=== PATIENT | male | born 1985 | race Caucasian/White ===

== ENCOUNTER 2022-12-25 11:34 | Emergency (ER) | payer MEDICARE ==
--- NOTE | 2022-12-25 12:21 | ERPHSYRPT ---
- History of Present Illness Time Seen by Provider: 12/25/22 12:21 Source: patient, family Exam Limitations: no limitations Physician History: This is a 37-year-old white male patient of Dr. Vargas seizure disorder and recently changed from immediate release Dilantin to an extended release Dilantin medication with a lower strength. Since that change was made, the patient had a couple of seizures last night and 5 this morning. He has not hit his head. He states that he thinks his Dilantin level is low and the immediate release Dilantin medication works best for him. Patient denies headache. Patient denies chest pain, patient denies abdominal pain. He said no nausea vomiting or diarrhea. He has not had any loss of bowel or urine continence. Timing/Duration: yesterday Severity: mild (To moderate) Character of Deficits: none Baseline/Normal Cognition: alert 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 Current Cognition: alert 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 Baseline Gait: walks w/o assistance Associated Symptoms: seizures Travel Risk - International Travel Have you traveled outside of the country in past 3 weeks: No - Coronavirus Screening Are you exhibiting any of the following symptoms?: No Close contact with a COVID-19 positive Pt in past 14-21 Days: No - Review of Systems Constitutional: No Symptoms Eyes: No Symptoms Ears, Nose, & Throat: No Symptoms Respiratory: No Symptoms Cardiac: No Symptoms Abdominal/Gastrointestinal: No Symptoms Genitourinary Symptoms: No Symptoms Musculoskeletal: No Symptoms Skin: No Symptoms Neurological: Seizure Psychological: No Symptoms Endocrine: No Symptoms Hematologic/Lymphatic: No Symptoms Immunological/Allergic: No Symptoms All Other Systems: Reviewed and Negative - Past Medical History Pertinent Past Medical History: Yes - Past Surgical History Past Surgical History: Yes - Nursing Vital Signs Nursing Vital Signs: Initial Vital Signs Temperature 97.3 F 12/25/22 12:09 Pulse Rate 61 12/25/22 12:09 Blood Pressure 111/87 12/25/22 12:09 O2 Sat by Pulse Oximetry 98 12/25/22 12:09 Pain Scale Pain Intensity 0 - [place] Coma Scale Best Eye Response ([place]): (4) open spontaneously Best Verbal Response ([place]): (5) oriented Best Motor Response ([place]): (6) obeys commands [place] Total: 15 - Physical Exam General Appearance: no apparent distress, alert, anxiety Eye Exam: bilateral eye: normal inspection, PERRL, EOMI Ears, Nose, Throat Exam: normal ENT inspection, moist mucous membranes Neck Exam: normal inspection, non-tender, supple, full range of motion Respiratory: normal breath sounds, lungs clear, airway intact, No chest tenderness, No respiratory distress Cardiovascular: regular rate/rhythm, normal heart sounds, normal peripheral pulses Gastrointestinal: soft, normal bowel sounds, No tenderness Rectal Exam: not done Back Exam: normal inspection, normal range of motion, No CVA tenderness, No vertebral tenderness Extremity Exam: normal inspection, normal range of motion, pelvis stable 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, 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, 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 Exam: normal hearing, normal speech, PERRL, tongue midline Coordination/Gait: normal finger to nose, normal gait, normal cerebellar function Motor/Sensory: no motor deficit, no sensory deficit Skin Exam: normal color, warm, dry SpO2 Interpretation: normal O2 Delivery: Room Air - Course Nursing assessment & vital signs reviewed: Yes Ordered Tests: Active Orders 24 hr Category Date Time Status Hand Brush Filler STAT Care 12/25/22 12:39 Active IV Insertion STAT Care 12/25/22 12:38 Active Pulse Oximetry (ED) STAT Care 12/25/22 12:38 Active CBC W DIFF Stat Lab 12/25/22 12:30 Completed CMP Stat Lab 12/25/22 12:30 Completed UA W/RFX UR CULTURE Stat Lab 12/25/22 12:38 Ordered Urine Triage Profile Stat Lab 12/25/22 12:38 Ordered Medication Summary Discontinued Medications Generic Name Dose Route Start Last Admin Trade Name Freq PRN Reason Stop Dose Admin Phenytoin Sodium 1,000 mg/ 120 mls @ 240 mls/hr 12/25/22 13:24 12/25/22 13:43 Sodium Chloride IV 12/25/22 13:53 240 mls/hr STAT ONE Administration Sodium Chloride Confirm 12/25/22 13:56 Sodium Chloride 0.9% 1000 Ml Administered 12/25/22 13:57 Dose 1,000 mls @ ud .ROUTE .STK-MED ONE Sodium Chloride 1,000 mls @ 999 mls/hr 12/25/22 14:02 12/25/22 15:16 Sodium Chloride 0.9% 1000 Ml IV 12/25/22 15:02 Infused .Q1H1M STA Infusion Lorazepam 0.5 mg 12/25/22 12:48 12/25/22 13:24 Lorazepam 2 Mg/1 Ml 2 Mg Vial IV 12/25/22 12:49 0.5 mg STAT ONE Administration Lorazepam Confirm 12/25/22 13:22 Lorazepam 2 Mg/1 Ml 2 Mg Vial Administered 12/25/22 13:23 Dose 2 mg .ROUTE .STK-MED ONE Lab/Rad Data: Laboratory Result Diagrams 12/25/22 12:30 12/25/22 12:30 Laboratory Results 12/25/22 12/25/22 12/25/22 Range/Units 12:30 12:30 12:30 WBC 6.7 (4.0-10.5) x10^3/uL RBC 4.65 (4.1-5.6) x10^6/uL Hgb 14.3 (12.5-18.0) g/dL Hct 43.1 (42-50) % MCV 92.7 (78-100) fL MCH 30.8 (26-32) pg MCHC 33.2 (32-36) g/dL RDW 12.8 (11.5-14.0) % Plt Count 192 (150-450) x10^3/uL MPV 10.5 (7.5-11.0) fL Gran % 51.8 (36.0-66.0) % Immature Gran % (Auto) 0.1 (0.00-0.4) % Nucleat RBC Rel Count 0.0 (0.00-0.1) % Eos # (Auto) 0.19 (0-0.5) x10^3/uL Immature Gran # (Auto) 0.01 (0.00-0.03) x10^3u/L Absolute Lymphs (auto) 2.40 (1.0-4.6) x10^3/uL Absolute Monos (auto) 0.59 (0.0-1.3) x10^3/uL Absolute Nucleated RBC 0.00 (0.00-0.01) x10^3u/L Lymphocytes % 35.9 (24.0-44.0) % Monocytes % 8.8 (0.0-12.0) % Eosinophils % 2.8 (0.00-5.0) % Basophils % 0.6 (0.0-0.4) % Absolute Granulocytes 3.45 (1.4-6.9) x10^3/uL Basophils # 0.04 (0-0.4) x10^3/uL Sodium 140 (137-145) mmol/L Potassium 4.0 (3.5-5.1) mmol/L Chloride 110 H (98-107) mmol/L Carbon Dioxide 20 L (22-30) mmol/L Anion Gap 13.3 (5-15) MEQ/L BUN 11 (9-20) mg/dL Creatinine 0.97 (0.66-1.25) mg/dL Estimated GFR > 60.0 ML/MIN Glucose 111 H (74-106) mg/dL Calcium 8.8 (8.4-10.2) mg/dL Total Bilirubin 0.40 (0.2-1.3) mg/dL AST 25 (17-59) U/L ALT 25 (0-50) U/L Alkaline Phosphatase 104 (38-126) U/L Serum Total Protein 7.1 (6.3-8.2) g/dL Albumin 3.8 (3.5-5.0) g/dL Phenytoin < 3.0 L (10-20) ug/mL - Progress Progress: improved Progress Note: 12/25/22 15:22 Patient's medical issue is 1 of moderate complexity. The level of complexity and the work-up performed is based on review of the patient's past medical history, review of the patient's medication list, review of the patient's drug allergy list, history of present illness and physical findings on examination. The work-up in this patient includes Dilantin level, CBC, CMP, infusion of 1 L of normal saline solution. I reviewed the work-up results and it is apparent that this patient had breakthrough seizure secondary to low Dilantin level. We infused 1000 mg of Dilantin intravenously. Patient will contact his prescribing provider tomorrow, 12/26/2022 to have them reassess his medication and provide further instructions. Counseled pt/family regarding: lab results, diagnosis, need for follow-up Medical Desision Making - Independent Historian Additional History obtained from: Spouse - Diagnostic Testing Diagnostic test were ordered, analyzed, and reviewed by me: Yes - Risk of complications Minimal Risk: Minimal risk of morbidity - Departure Departure Disposition: Home Clinical Impression: Breakthrough seizure, Dilantin level too low Condition: Stable Critical Care Time: No Referrals: WOODY VARGAS [Primary Care Provider] - Follow up/PCP as directed Additional Instructions: Call your prescribing provider tomorrow to discuss your Dilantin medication antonio thrasher.
[2022-12-25 12:24] VITALS: O2SAT 98
[2022-12-25] MEDS ORDERED: Ativan 2 MG/1 ML VIAL IV ONE (12:48)
[2022-12-25 12:55] LABS: Absolute Neutrophil Ct (ANC) 3.45 x10^3/uL (1.4-6.9); BASOPHIL % 0.6 % (0.0-0.4); Basophil (Absolute #) 0.04 x10^3/uL (0-0.4); Eosinophil % 2.8 % (0.00-5.0); Eosinophil (Absolute #) 0.19 x10^3/uL (0-0.5); Hematocrit 43.1 % (42-50); Hemoglobin 14.3 g/dL (12.5-18.0); IMMATURE GRAN # 0.01 x10^3u/L (0.00-0.03); IMMATURE GRAN % 0.1 % (0.00-0.4); Lymphocytes % 35.9 % (24.0-44.0); Mean Cell Volume 92.7 fL (78-100); Mean Corpuscular Hemoglobin 30.8 pg (26-32); Mean Corpuscular Hgb Concent. 33.2 g/dL (32-36); Mean Platelet Volume 10.5 fL (7.5-11.0); Monocyte (Absolute #) 0.59 x10^3/uL (0.0-1.3); Monocytes % 8.8 % (0.0-12.0); Neutrophil % 51.8 % (36.0-66.0); Platelet Count 192 x10^3/uL (150-450); Red Blood Count 4.65 x10^6/uL (4.1-5.6); Red Cell Distribution Width 12.8 % (11.5-14.0); White Blood Count 6.7 x10^3/uL (4.0-10.5)
[2022-12-25 13:08] LABS: ALBUMIN 3.8 g/dL (3.5-5.0); ALKALINE PHOSPHATASE 104 U/L (38-126); ANION GAP 13.3 MEQ/L (5-15); BLOOD UREA NITROGEN 11 mg/dL (9-20); CHLORIDE 110 mmol/L (98-107); Calcium 8.8 mg/dL (8.4-10.2); Carbon Dioxide 20 mmol/L (22-30); Creatinine 1 0.97 mg/dL (0.66-1.25); EST GLOMERULAR FILTRATION RATE > 60.0 ML/MIN; Glucose 111 mg/dL (74-106); SGOT/AST 25 U/L (17-59); SGPT/ALT 25 U/L (0-50); SODIUM 140 mmol/L (137-145); Total Protein 7.1 g/dL (6.3-8.2)
[2022-12-25] MEDS ORDERED: Ativan 2 MG/1 ML VIAL ONE (13:22)
[2022-12-25] MEDS ORDERED: DILANTIN IV ONE (13:24)
[2022-12-25] MEDS ORDERED: SODIUM CHLORIDE 0.9% IV ONE (13:24)
[2022-12-25] MEDS ORDERED: Sodium Chloride 0.9% 1000 ML 1,000 ML ONE (13:56)
[2022-12-25] MEDS ORDERED: Sodium Chloride 0.9% 1000 ML 1,000 ML IV STA (14:02)
[2022-12-25 15:13] VITALS: BP 103/68; PULSE 88
== END 2022-12-25 16:06 | disposition home or self-care (01) ==
LOC: ED 11:34
DX: G40.909 Epilepsy, unspecified, not intractable, without status epilepticus (principal); T42.0X6A Underdosing of hydantoin derivatives, initial encounter
CPT/HCPCS: 36000; 36415; 80053; 80185; 85025; 93041; 94760; 96360; 96374; 99284; J1165; J2060

== ENCOUNTER 2024-05-13 10:31 | Emergency (ER) | payer MEDICARE ==
--- NOTE | 2024-05-13 10:34 | ERPHSYRPT ---
- History of Present Illness Time Seen by Provider: 05/13/24 10:34 Source: patient, family Exam Limitations: no limitations Physician History: This is a 38-year-old white male patient who has a history of seizure disorder and depression and is taking Dilantin to help control his seizures and presents to the emergency department by private vehicle because of headache and his head feeling "foggy". Patient woke up this morning could hear his significant other calling him to get up but he could not move. He stated he feels somewhat paralyzed. He now can move all his extremities but his fogginess has persisted. He denies trauma to the area. Patient states that he has been taking his Dilantin as prescribed except not this morning because of this episode. He has never had this type of thing before. I did review his old chart which did state in the past has had breakthrough seizures. Patient is a daily smoker of tobacco cigarettes and occasionally uses marijuana. The patient denies chest pain and he denies shortness of breath. He has no abdominal pain. He has no nausea vomiting or diarrhea symptoms. Timing/Duration: today Quality: aching Head Pain Location: parietal Severity of Pain-Max: mild Severity of Pain-Current: mild (Left side primarily) Recent Head Trauma: no recent headache/trauma Modifying Factors: Improves With: other Associated Symptoms: denies symptoms Previous symptoms: no prior history Allergies/Adverse Reactions: Iodinated Contrast Media Allergy (Verified 05/13/24 11:24) Penicillins Allergy (Verified 05/13/24 11:24) Home Medications: Unobtainable 05/13/24 [History] Hx Tetanus, Diphtheria Vaccination/Date Given: No Hx Influenza Vaccination/Date Given: No Hx Pneumococcal Vaccination/Date Given: No Travel Risk - International Travel Have you traveled outside of the country in past 3 weeks: No - Emerging Infectious Disease Are you exhibiting symptoms associated with any current EIDs: No - Review of Systems Constitutional: No Symptoms Eyes: No Symptoms Ears, Nose, & Throat: No Symptoms Respiratory: No Symptoms Cardiac: No Symptoms Abdominal/Gastrointestinal: No Symptoms Genitourinary Symptoms: No Symptoms Musculoskeletal: No Symptoms Skin: No Symptoms Neurological: Headache Psychological: No Symptoms Endocrine: No Symptoms Hematologic/Lymphatic: No Symptoms Immunological/Allergic: No Symptoms All Other Systems: Reviewed and Negative - Past Medical History Pertinent Past Medical History: Yes Neurological History: Seizures ENT History: No Pertinent History Cardiac History: No Pertinent History Respiratory History: No Pertinent History Endocrine Medical History: No Pertinent History Musculoskeletal History: No Pertinent History GI Medical History: No Pertinent History History: No Pertinent History Psycho-Social History: Depression Male Reproductive Disorders: No Pertinent History - Past Surgical History Past Surgical History: Yes Other Surgical History: ear surgery, lap choley, bilateral inguinal hernia repair - Social History Smoking Status: Current every day smoker How long have you smoked: 19 yrs Drug Use: marijuana Patient Lives Alone: No - Nursing Vital Signs Nursing Vital Signs: Initial Vital Signs Temperature 972 F 05/13/24 11:21 Pulse Rate 80 05/13/24 11:21 Respiratory Rate 18 05/13/24 11:21 Blood Pressure 121/73 05/13/24 11:21 O2 Sat by Pulse Oximetry 98 05/13/24 11:21 Pain Scale Pain Intensity 0 - Physical Exam General Appearance: no apparent distress, alert, anxiety Eye Exam: PERRL/EOMI, eyes nml inspection Ears, Nose, Throat Exam: normal ENT inspection, moist mucous membranes Neck Exam: normal inspection, non-tender, supple, full range of motion Respiratory Exam: normal breath sounds, lungs clear, airway intact, No chest tenderness, No respiratory distress Cardiovascular Exam: regular rate/rhythm, normal heart sounds, normal peripheral pulses Gastrointestinal/Abdominal Exam: soft, normal bowel sounds, No tenderness Back Exam: normal inspection, normal range of motion, No CVA tenderness, No vertebral tenderness Extremity Exam: normal inspection, normal range of motion, pelvis stable Mental Status Exam: alert, 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, 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 Exam: normal hearing, normal speech, PERRL, tongue midline Coordination/Gait Exam: normal gait, normal cerebellar function Motor/Sensory Exam: no motor deficit, no sensory deficit, no pronator drift Skin Exam: normal color, warm, dry Lymphatic Exam: No adenopathy SpO2 Interpretation: normal O2 Delivery: Room Air - Course Nursing assessment & vital signs reviewed: Yes Ordered Tests: Active Orders 24 hr Category Date Time Status Transportation Specialist STAT Care 05/13/24 11:29 Active Clean Catch Urine Specimen STAT Care 05/13/24 11:28 Active IV Insertion STAT Care 05/13/24 11:28 Active Pulse Oximetry (ED) STAT Care 05/13/24 11:28 Active HEAD WITHOUT CONTRAST [CT] Stat Exams 05/13/24 11:28 Completed CBC W DIFF Stat Lab 05/13/24 12:00 Completed CMP Stat Lab 05/13/24 12:00 Completed UA W/RFX UR CULTURE Stat Lab 05/13/24 11:51 Completed Urine Triage Profile Stat Lab 05/13/24 11:51 Completed Medication Summary Discontinued Medications Generic Name Dose Route Start Last Admin Trade Name Maren PRN Reason Stop Dose Admin Sodium Chloride 500 mls @ 500 mls/hr 05/13/24 11:30 05/13/24 12:48 Sodium Chloride 0.9% 500 Ml IV 05/13/24 12:29 Infused .Q1H ONE Infusion Sodium Chloride Confirm 05/13/24 11:47 Sodium Chloride 0.9% 500 Ml Administered 05/13/24 11:48 Dose 500 mls @ ud IV .STK-MED ONE Lab/Rad Data: Laboratory Result Diagrams 05/13/24 12:00 05/13/24 12:00 Laboratory Results 05/13/24 05/13/24 05/13/24 Range/Units 12:18 12:00 12:00 WBC (4.23-9.07) x10^3/uL RBC (4.63-6.08) x10^6/uL Hgb (13.7-17.5) g/dL Hct (40.1-51.0) % MCV (79.0-92.2) fL MCH (25.7-32.2) pg MCHC (32.3-36.5) g/dL RDW (11.6-14.4) % Plt Count (163-337) x10^3/uL MPV (9.4-12.4) fL Gran % (34.0-67.9) % Immature Gran % (Auto) (0.001-0.429) % Nucleat RBC Rel Count (0.00-0.2) % Eos # (Auto) (0.04-0.54) x10^3/uL Immature Gran # (Auto) (0.001-0.031) x10^3u/L Absolute Lymphs (auto) (1.32-3.57) x10^3/uL Absolute Monos (auto) (0.30-0.82) x10^3/uL Absolute Nucleated RBC (0.00-0.012) x10^3u/L Lymphocytes % (21.8-53.1) % Monocytes % (5.3-12.2) % Eosinophils % (0.8-7.0) % Basophils % (0.2-1.2) % Absolute Granulocytes (1.78-5.38) x10^3/uL Basophils # (0.01-0.08) x10^3/uL Sodium 140 (135-145) mmol/L Potassium 4.1 (3.5-5.1) mmol/L Chloride 110 H (98-107) mmol/L Carbon Dioxide 22 (22-30) mmol/L Anion Gap 12.4 (5-15) MEQ/L BUN 11 (9-20) mg/dL Creatinine 0.91 (0.66-1.25) mg/dL Estimated GFR 112.0 ML/MIN Glucose 106 (74-106) mg/dL Calcium 9.1 (8.4-10.2) mg/dL Total Bilirubin 0.40 (0.2-1.3) mg/dL AST 33 (17-59) U/L ALT 23 (0-50) U/L Alkaline Phosphatase 92 (38-126) U/L Serum Total Protein 7.0 (6.3-8.2) g/dL Albumin 4.0 (3.5-5.0) g/dL Urine Color (Yellow) Urine Appearance (Clear) Urine pH (4.6-8.0) Ur Specific [place] (1.005-1.030) Urine Protein (Negative) Urine Glucose (UA) (Negative) mg/dL Urine Ketones (Negative) Urine Blood (Negative) Urine Nitrite (Negative) Urine Bilirubin (Negative) Urine Urobilinogen (0.2) mg/dL Ur Leukocyte Esterase (Negative) U Hyaline Cast (Auto) (0-2) /LPF Urine Microscopic RBC (0-5) /HPF Urine Microscopic WBC (0-5) /HPF Ur Epithelial Cells (None Seen) /HPF Urine Bacteria (None Seen) /HPF Urine Culture Reflexed (NO) Urine Opiates Level (NEGATIVE) Ur Methadone (NEGATIVE) Urine Barbiturates (NEGATIVE) Phenytoin < 3.0 L (10-20) ug/mL Ur Phencyclidine (PCP) (NEGATIVE) Urine Amphetamine (NEGATIVE) U Benzodiazepine Level (NEGATIVE) Urine Cocaine (NEGATIVE) Urine Marijuana (THC) (NEGATIVE) Influenza Type A Ag NEGATIVE (NEGATIVE) Influenza Type B Ag NEGATIVE (NEGATIVE) RSV (PCR) NEGATIVE (NEGATIVE) SARS-CoV-2 (PCR) NEGATIVE (NEGATIVE) 05/13/24 05/13/24 05/13/24 Range/Units 12:00 11:51 11:51 WBC 6.6 (4.23-9.07) x10^3/uL RBC 4.44 L (4.63-6.08) x10^6/uL Hgb 13.7 (13.7-17.5) g/dL Hct 40.7 (40.1-51.0) % MCV 91.7 (79.0-92.2) fL MCH 30.9 (25.7-32.2) pg MCHC 33.7 (32.3-36.5) g/dL RDW 13.1 (11.6-14.4) % Plt Count 182 (163-337) x10^3/uL MPV 11.5 (9.4-12.4) fL Gran % 57.4 (34.0-67.9) % Immature Gran % (Auto) 0.2 (0.001-0.429) % Nucleat RBC Rel Count 0.0 (0.00-0.2) % Eos # (Auto) 0.10 (0.04-0.54) x10^3/uL Immature Gran # (Auto) 0.01 (0.001-0.031) x10^3u/L Absolute Lymphs (auto) 2.10 (1.32-3.57) x10^3/uL Absolute Monos (auto) 0.57 (0.30-0.82) x10^3/uL Absolute Nucleated RBC 0.00 (0.00-0.012) x10^3u/L Lymphocytes % 31.9 (21.8-53.1) % Monocytes % 8.7 (5.3-12.2) % Eosinophils % 1.5 (0.8-7.0) % Basophils % 0.3 (0.2-1.2) % Absolute Granulocytes 3.78 (1.78-5.38) x10^3/uL Basophils # 0.02 (0.01-0.08) x10^3/uL Sodium (135-145) mmol/L Potassium (3.5-5.1) mmol/L Chloride (98-107) mmol/L Carbon Dioxide (22-30) mmol/L Anion Gap (5-15) MEQ/L BUN (9-20) mg/dL Creatinine (0.66-1.25) mg/dL Estimated GFR ML/MIN Glucose (74-106) mg/dL Calcium (8.4-10.2) mg/dL Total Bilirubin (0.2-1.3) mg/dL AST (17-59) U/L ALT (0-50) U/L Alkaline Phosphatase (38-126) U/L Serum Total Protein (6.3-8.2) g/dL Albumin (3.5-5.0) g/dL Urine Color Yellow (Yellow) Urine Appearance Clear (Clear) Urine pH 7.0 (4.6-8.0) Ur Specific [place] 1.020 (1.005-1.030) Urine Protein Negative (Negative) Urine Glucose (UA) Negative (Negative) mg/dL Urine Ketones Negative (Negative) Urine Blood Negative (Negative) Urine Nitrite Negative (Negative) Urine Bilirubin Negative (Negative) Urine Urobilinogen 0.2 (0.2) mg/dL Ur Leukocyte Esterase Trace A (Negative) U Hyaline Cast (Auto) NONE SEEN (0-2) /LPF Urine Microscopic RBC 0-2 (0-5) /HPF Urine Microscopic WBC 0-2 (0-5) /HPF Ur Epithelial Cells None Seen (None Seen) /HPF Urine Bacteria None Seen (None Seen) /HPF Urine Culture Reflexed NO (NO) Urine Opiates Level NEGATIVE (NEGATIVE) Ur Methadone NEGATIVE (NEGATIVE) Urine Barbiturates NEGATIVE (NEGATIVE) Phenytoin (10-20) ug/mL Ur Phencyclidine (PCP) NEGATIVE (NEGATIVE) Urine Amphetamine NEGATIVE (NEGATIVE) U Benzodiazepine Level NEGATIVE (NEGATIVE) Urine Cocaine NEGATIVE (NEGATIVE) Urine Marijuana (THC) POSITIVE A (NEGATIVE) Influenza Type A Ag (NEGATIVE) Influenza Type B Ag (NEGATIVE) RSV (PCR) (NEGATIVE) SARS-CoV-2 (PCR) (NEGATIVE) - Progress Progress: improved Air Movement: good Progress Note: 05/13/24 11:41 My medical decision making the assignment of moderate complexity to this patient's medical issue today is based on review of the patient's past medical history, review the patient's medication list, reviewed patient drug allergy list, history present illness and physical findings on examination. The workup includes a smell of intravenous line, infusion of normal saline solution, CBC, CMP, urinalysis, urine drug triage, CT scan of the head, viral swabs, Dilantin level. The differential diagnosis includes but is not limited to abnormal Dilantin level, acute intracranial abnormality, electrolyte abnormalities, dehydration, urinary tract infection 05/13/24 13:08 CT scan of the head without contrast was interpreted by the radiologist and I reviewed the impression. The impression states normal CT scan of the head without contrast. 05/13/24 13:20 I interpreted the lab results. No acute/emergent medical issues. Blood Culture(s) Obtained: No Antibiotics given: No Counseled pt/family regarding: lab results, diagnosis, need for follow-up, rad results Medical Desision Making - Diagnostic Testing Diagnostic test were ordered, analyzed, and reviewed by me: Yes Radiological Interpretation: Reviewed by me, Teleradiologist Report - Risk of complications Low Risk: Low risk of morbidity from additional dx testing or treatment - Departure Departure Disposition: Home Clinical Impression: Headache, Phenytoin level low Condition: Stable Critical Care Time: No Referrals: ABDON JUAREZ FNP [Primary Care Provider] - Follow up/PCP as directed Additional Instructions: drink plenty of fluids. take your medications as prescribed. call the provider today, 05/13/24, who prescribes your Dilantin to adjust if indicated.
[2024-05-13 11:22] VITALS: TEMP 972
[2024-05-13] MEDS ORDERED: Sodium Chloride 0.9% 500 ML 500 ML IV ONE (11:47)
[2024-05-13] MEDS: Sodium Chloride 0.9% 500 ML 500 ML IV ONE (11:48)
[2024-05-13 12:16] LABS: Absolute Neutrophil Ct (ANC) 3.78 x10^3/uL (1.78-5.38); BASOPHIL % 0.3 % (0.2-1.2); Basophil (Absolute #) 0.02 x10^3/uL (0.01-0.08); Eosinophil % 1.5 % (0.8-7.0); Hematocrit 40.7 % (40.1-51.0); Hemoglobin 13.7 g/dL (13.7-17.5); IMMATURE GRAN # 0.01 x10^3u/L (0.001-0.031); IMMATURE GRAN % 0.2 % (0.001-0.429); Lymphocytes % 31.9 % (21.8-53.1); Mean Cell Volume 91.7 fL (79.0-92.2); Mean Corpuscular Hemoglobin 30.9 pg (25.7-32.2); Mean Corpuscular Hgb Concent. 33.7 g/dL (32.3-36.5); Mean Platelet Volume 11.5 fL (9.4-12.4); Monocyte (Absolute #) 0.57 x10^3/uL (0.30-0.82); Monocytes % 8.7 % (5.3-12.2); Neutrophil % 57.4 % (34.0-67.9); Platelet Count 182 x10^3/uL (163-337); Red Blood Count 4.44 x10^6/uL (4.63-6.08); Red Cell Distribution Width 13.1 % (11.6-14.4); White Blood Count 6.6 x10^3/uL (4.23-9.07)
[2024-05-13 12:30] LABS: Appearance Clear (Clear); Bacteria None Seen /HPF (None Seen); Bilirubin Negative (Negative); Blood Negative (Negative); Epithelial Cells None Seen /HPF (None Seen); Glucose, Urine Negative (Negative); Hyaline Casts NONE SEEN /LPF (0-2); Ketones Negative (Negative); Leukocyte Esterase Trace (Negative); Nitrite Negative (Negative); Protein,Urine Dip Negative (Negative); RBC 0-2 /HPF (0-5); Urobilinogen 0.2 mg/dL (0.2); WBC 0-2 /HPF (0-5)
[2024-05-13 12:39] LABS: Amphetamine,Urine NEGATIVE (NEGATIVE); Barbiturate,Urine NEGATIVE (NEGATIVE); Benzodiazepine,Urine NEGATIVE (NEGATIVE); Cocaine,Urine NEGATIVE (NEGATIVE); Methadone,Urine NEGATIVE (NEGATIVE); Opiate,Urine NEGATIVE (NEGATIVE); PCP,Urine NEGATIVE (NEGATIVE); THC,Urine POSITIVE (NEGATIVE)
[2024-05-13 12:42] LABS: ANION GAP 12.4 MEQ/L (5-15); BILIRUBIN,TOTAL 0.4 mg/dL (0.2-1.3); Calcium 9.1 mg/dL (8.4-10.2); Creatinine 1 0.91 mg/dL (0.66-1.25); Potassium 4.1 mmol/L (3.5-5.1)
--- NOTE | 2024-05-13 12:46 | XRAY ---
Indication: Headache. No known injury. Multiple contiguous axial images obtained through the head without contrast. Comparison: None Normal appearing brain parenchyma, ventricles, and bony calvarium. Visualized paranasal sinuses and mastoid air cells are clear. Impression: Normal CT head without contrast exam.
[2024-05-13 12:59] LABS: INFLUENZA A NEGATIVE (NEGATIVE); INFLUENZA B NEGATIVE (NEGATIVE); RESPIRATORY SYNCTIAL VIRUS NEGATIVE (NEGATIVE); SARS-CoV-2 Xpert Express NEGATIVE (NEGATIVE)
[2024-05-13 13:43] VITALS: BP 128/86; PULSE 76; RESP 16; O2SAT 97
== END 2024-05-13 13:50 | disposition home or self-care (01) ==
LOC: ED 10:31
DX: R51.9 Headache, unspecified (principal); T42.0X6A Underdosing of hydantoin derivatives, initial encounter; G40.909 Epilepsy, unspecified, not intractable, without status epilepticus
CPT/HCPCS: 0241U; 36000; 36415; 70450; 80053; 80185; 80307; 81001; 85025; 93041; 94760; 99284

== ENCOUNTER 2024-07-30 19:40 | Emergency (ER) | payer MEDICARE ==
[2024-07-30] MEDS ORDERED: Ativan 2 MG/1 ML VIAL ONE (19:49)
[2024-07-30] MEDS: Ativan 2 MG/1 ML VIAL IV ONE (19:53)
[2024-07-30 20:05] LABS: Absolute Neutrophil Ct (ANC) 8.16 x10^3/uL (1.78-5.38); BASOPHIL % 0.3 % (0.2-1.2); Basophil (Absolute #) 0.03 x10^3/uL (0.01-0.08); Eosinophil % 0.3 % (0.8-7.0); Eosinophil (Absolute #) 0.03 x10^3/uL (0.04-0.54); Hematocrit 41.8 % (40.1-51.0); Hemoglobin 14.5 g/dL (13.7-17.5); IMMATURE GRAN # 0.04 x10^3u/L (0.001-0.031); IMMATURE GRAN % 0.4 % (0.001-0.429); Lymphocyte (Absolute #) 1.99 x10^3/uL (1.32-3.57); Lymphocytes % 18.4 % (21.8-53.1); Mean Corpuscular Hemoglobin 30.5 pg (25.7-32.2); Mean Corpuscular Hgb Concent. 34.7 g/dL (32.3-36.5); Mean Platelet Volume 10.2 fL (9.4-12.4); Monocyte (Absolute #) 0.55 x10^3/uL (0.30-0.82); Monocytes % 5.1 % (5.3-12.2); Neutrophil % 75.5 % (34.0-67.9); Platelet Count 200 x10^3/uL (163-337); Red Blood Count 4.75 x10^6/uL (4.63-6.08); Red Cell Distribution Width 12.8 % (11.6-14.4); White Blood Count 10.8 x10^3/uL (4.23-9.07)
[2024-07-30 20:25] LABS: ALBUMIN 4.5 g/dL (3.5-5.0); ALKALINE PHOSPHATASE 96 U/L (38-126); ANION GAP 18.2 MEQ/L (5-15); BLOOD UREA NITROGEN 9 mg/dL (9-20); CHLORIDE 112 mmol/L (98-107); Calcium 9.5 mg/dL (8.4-10.2); Creatinine 1 1.14 mg/dL (0.66-1.25); EST GLOMERULAR FILTRATION RATE 85.5 ML/MIN; ETHYL ALCOHOL < 10 mg/dL (0-10); Glucose 121 mg/dL (74-106); MAGNESIUM 2.1 mg/dL (1.6-2.3); Potassium 3.5 mmol/L (3.5-5.1); SGOT/AST 26 U/L (17-59); SGPT/ALT 27 U/L (0-50); SODIUM 142 mmol/L (135-145); Total Protein 7.4 g/dL (6.3-8.2)
--- NOTE | 2024-07-30 20:43 | ERPHSYRPT ---
- History of Present Illness Time Seen by Provider: 07/30/24 19:55 Patient Subjective Stated Complaint: Pt. states, "I just left [place] this morning after sending the night for increased seizure activity. They increased my Dilantin and sent me home. I starting seizing today and had severe pain in my neck and head so I called the ambulance. I did fall and hit my head during one of the seizures. Triage Nursing Assessment: Pt. arrives via EMS, A&Ox3, skin P/W/D, Resp even unlabored, weakness in all four extremities, d/t post ictal paralysis, SR on monitor. During triage assessment pt. began actively seizing, entire body involved lasting approx. 15 seconds. Physician History: Patient is a 38-year-old male presents to our ED via EMS for evaluation of seizure. Per report patient had 4 episodes of seizure activity today. [place] [facility] spending the night there for evaluation and treatment of seizure activity. Patient reports that while in the hospital his Dilantin was increased prior to discharge. Upon arrival to our ED patient was somewhat conversant but drowsy. No associated chest pain or shortness of breath. No nausea vomiting or diaphoresis. Patient voices no other complaints or concerns at this time. Portions of this note were created with voice recognition technology. There may be grammatical, spelling, punctuation or sound alike errors Timing/Duration: today Severity: moderate Modifying Factors: Improves With: nothing Associated Symptoms: denies symptoms Allergies/Adverse Reactions: Iodinated Contrast Media Allergy (Verified 05/13/24 11:24) Penicillins Allergy (Verified 05/13/24 11:24) Home Medications: Phenytoin 30 ml PO BID 07/31/24 [History] Propranolol HCl 20 mg PO DAILY 07/31/24 [History] Topiramate 25 mg [Topamax 25 MG] 1 cap PO BID 07/31/24 [History] Hx Tetanus, Diphtheria Vaccination/Date Given: No Hx Influenza Vaccination/Date Given: No Hx Pneumococcal Vaccination/Date Given: No Immunizations Up to Date: No Travel Risk - International Travel Have you traveled outside of the country in past 3 weeks: No - Emerging Infectious Disease Are you exhibiting symptoms associated with any current EIDs: No - Review of Systems Constitutional: No Symptoms, No Fever, No Chills Eyes: No Symptoms Ears, Nose, & Throat: No Symptoms Respiratory: No Symptoms, No Cough, No Dyspnea Cardiac: No Symptoms, No Chest Pain, No Edema, No Syncope Abdominal/Gastrointestinal: No Symptoms, No Abdominal Pain, No Nausea, No Vomiting, No Diarrhea Genitourinary Symptoms: No Symptoms, No Dysuria Musculoskeletal: No Symptoms, No Back Pain, No Neck Pain Skin: No Symptoms, No Rash Neurological: No Symptoms, No Dizziness, No Focal Weakness, No Sensory Changes Psychological: No Symptoms Endocrine: No Symptoms Hematologic/Lymphatic: No Symptoms Immunological/Allergic: No Symptoms All Other Systems: Reviewed and Negative - Past Medical History Pertinent Past Medical History: Yes Neurological History: Seizures ENT History: No Pertinent History Cardiac History: No Pertinent History Respiratory History: No Pertinent History Endocrine Medical History: No Pertinent History Musculoskeletal History: No Pertinent History GI Medical History: No Pertinent History History: No Pertinent History Psycho-Social History: Depression Male Reproductive Disorders: No Pertinent History - Past Surgical History Past Surgical History: Yes Other Surgical History: ear surgery, lap choley, bilateral inguinal hernia repair - Social History Smoking Status: Current every day smoker How long have you smoked: 20 Exposure to second hand smoke: Yes Drug Use: none Patient Lives Alone: No - Social Determinants of Health Will the patient participate in the screening: Declined to provide - Nursing Vital Signs Nursing Vital Signs: Initial Vital Signs Temperature 97.3 F 07/30/24 19:44 Pulse Rate 65 07/30/24 19:44 Respiratory Rate 18 07/30/24 19:44 Blood Pressure 130/83 07/30/24 19:44 O2 Sat by Pulse Oximetry 98 07/30/24 19:44 Pain Scale Pain Intensity 0 - Physical Exam General Appearance: no apparent distress, alert Eye Exam: PERRL/EOMI, eyes nml inspection Ears, Nose, Throat Exam: normal ENT inspection, TMs normal, pharynx normal, moist mucous membranes Neck Exam: normal inspection, non-tender, supple, full range of motion Respiratory Exam: normal breath sounds, lungs clear, No respiratory distress Cardiovascular Exam: regular rate/rhythm, normal heart sounds, normal peripheral pulses Gastrointestinal/Abdomen Exam: soft, normal bowel sounds, No tenderness, No mass Back Exam: normal inspection, normal range of motion, No CVA tenderness, No vertebral tenderness Extremity Exam: normal inspection, normal range of motion, pelvis stable Neurologic Exam: alert, 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, cooperative, normal mood/affect, nml cerebellar function, nml station & gait, sensation nml, No motor deficits Skin Exam: normal color, warm, dry, No rash Lymphatic Exam: No adenopathy SpO2 Interpretation: normal SpO2: 98 O2 Delivery: Room Air - Course Nursing assessment & vital signs reviewed: Yes EKG Interpreted by Me: RATE (77), Sinus Rhythm, NORMAL AXIS, NORMAL INTERVALS, NORMAL QRS - Radiology Exams Chest X-ray Interpretation: Discussed w/ radiologist (No acute abnormality observed) - CT Exams Head CT Interpretation: Tele-radiologist Report (Age-appropriate head compared to 05/13/2024) Ordered Tests: Active Orders 24 hr Category Date Time Status AMA [Release AMA] OM.NOW Care 07/31/24 07:25 Active Power Sweeper Operator STAT Care 07/30/24 19:50 Active EKG-ER Only STAT Care 07/30/24 19:49 Active IV Insertion STAT Care 07/30/24 19:49 Active Pulse Oximetry (ED) STAT Care 07/30/24 19:49 Active CHEST 1 VIEW (PORTABLE) Stat Exams 07/30/24 19:50 Taken HEAD WITHOUT CONTRAST [CT] Stat Exams 07/30/24 19:51 Taken ACETAMINOPHEN Stat Lab 07/30/24 20:00 Completed ARTERIAL BLOOD GASES Urgent Lab 07/30/24 21:25 Completed CBC W DIFF Stat Lab 07/30/24 20:00 Completed CMP Stat Lab 07/30/24 20:00 Completed ETHYL ALCOHOL Stat Lab 07/30/24 20:00 Completed Lactic Acid Stat Lab 07/30/24 21:25 Completed MAGNESIUM Stat Lab 07/30/24 20:00 Completed SALICYLATE Stat Lab 07/30/24 20:00 Completed TROPONIN Q4H Lab 07/30/24 20:00 Completed TROPONIN Q4H Lab 07/31/24 01:12 Completed TROPONIN Q4H Lab 07/31/24 05:00 Completed UA W/RFX UR CULTURE Stat Lab 07/30/24 20:50 Completed Urine Triage Profile Stat Lab 07/30/24 20:50 Completed Medication Summary Generic Name Dose Route Start Last Admin Trade Name Freq PRN Reason Stop Dose Admin Topiramate 25 mg 07/31/24 10:00 Topiramate 50 Mg Tablet PO 08/30/24 09:59 DAILY MATILDA Discontinued Medications Generic Name Dose Route Start Last Admin Trade Name Freq PRN Reason Stop Dose Admin Lorazepam 2 mg 07/30/24 19:49 07/30/24 19:53 Lorazepam 2 Mg/1 Ml 2 Mg Vial IV 07/30/24 19:50 2 mg STAT ONE Administration Lorazepam Confirm 07/30/24 19:49 Lorazepam 2 Mg/1 Ml 2 Mg Vial Administered 07/30/24 19:50 Dose 2 mg .ROUTE .uromovie-Card[employer] ONE Prochlorperazine Edisylate 10 mg 07/30/24 21:02 07/30/24 21:03 Prochlorperazine Edisylate 10 Mg/2 Ml Vial IV 07/30/24 21:03 10 mg STAT ONE Administration Prochlorperazine Edisylate Confirm 07/30/24 21:03 Prochlorperazine Edisylate 10 Mg/2 Ml Vial Administered 07/30/24 21:04 Dose 10 mg .ROUTE .[employer] ONE Lab/Rad Data: Laboratory Result Diagrams 07/30/24 20:00 07/30/24 20:00 Laboratory Results 07/31/24 07/31/24 07/30/24 Range/Units 05:00 01:12 Unknown WBC (4.23-9.07) x10^3/uL RBC (4.63-6.08) x10^6/uL Hgb (13.7-17.5) g/dL Hct (40.1-51.0) % MCV (79.0-92.2) fL MCH (25.7-32.2) pg MCHC (32.3-36.5) g/dL RDW (11.6-14.4) % Plt Count (163-337) x10^3/uL MPV (9.4-12.4) fL Gran % (34.0-67.9) % Immature Gran % (Auto) (0.001-0.429) % Nucleat RBC Rel Count (0.00-0.2) % Eos # (Auto) (0.04-0.54) x10^3/uL Immature Gran # (Auto) (0.001-0.031) x10^3u/L Absolute Lymphs (auto) (1.32-3.57) x10^3/uL Absolute Monos (auto) (0.30-0.82) x10^3/uL Absolute Nucleated RBC (0.00-0.012) x10^3u/L Lymphocytes % (21.8-53.1) % Monocytes % (5.3-12.2) % Eosinophils % (0.8-7.0) % Basophils % (0.2-1.2) % Absolute Granulocytes (1.78-5.38) x10^3/uL Basophils # (0.01-0.08) x10^3/uL Puncture Site pCO2 (35-45) mmHg pO2 (75-100) mmHg Base Excess (-2.0-2.0) O2 Saturation (94-100) g/dF ABG pH (7.35-7.45) ABG HCO3 (22-28) ABG O2 Sat (Measured) (95-100) % Arturo Test A-a Gradient a/A Ratio Hemoglobin Carboxyhemoglobin (0.0-6.9) % THgb Methemoglobin (1.4-1.5) % Temperature C POC O2 Flow Rate % Sodium (135-145) mmol/L Potassium (3.5-5.1) mmol/L Chloride (98-107) mmol/L Carbon Dioxide (22-30) mmol/L Anion Gap (5-15) MEQ/L BUN (9-20) mg/dL Creatinine (0.66-1.25) mg/dL Estimated GFR ML/MIN Glucose (74-106) mg/dL Lactic Acid (0.4-2.0) Calcium (8.4-10.2) mg/dL Magnesium (1.6-2.3) mg/dL Total Bilirubin (0.2-1.3) mg/dL AST (17-59) U/L ALT (0-50) U/L Alkaline Phosphatase (38-126) U/L Troponin I < 0.012 < 0.012 (0.000-0.033) ng/mL Serum Total Protein (6.3-8.2) g/dL Albumin (3.5-5.0) g/dL Urine Color (Yellow) Urine Appearance (Clear) Urine pH (4.6-8.0) Ur Specific [place] (1.005-1.030) Urine Protein (Negative) Urine Glucose (UA) (Negative) mg/dL Urine Ketones (Negative) Urine Blood (Negative) Urine Nitrite (Negative) Urine Bilirubin (Negative) Urine Urobilinogen (0.2) mg/dL Ur Leukocyte Esterase (Negative) U Hyaline Cast (Auto) (0-2) /LPF Urine Microscopic RBC (0-5) /HPF Urine Microscopic WBC (0-5) /HPF Ur Epithelial Cells (None Seen) /HPF Urine Bacteria (None Seen) /HPF Urine Culture Reflexed (NO) Salicylates (2-20) mg/dL Urine Opiates Level (NEGATIVE) Ur Methadone (NEGATIVE) Acetaminophen (10-30) ug/ml Urine Barbiturates (NEGATIVE) Phenytoin 18.2 (10-20) ug/mL Ur Phencyclidine (PCP) (NEGATIVE) Urine Amphetamine (NEGATIVE) U Benzodiazepine Level (NEGATIVE) Urine Cocaine (NEGATIVE) Urine Marijuana (THC) (NEGATIVE) Ethyl Alcohol (0-10) mg/dL 07/30/24 07/30/24 07/30/24 Range/Units 21:25 21:25 20:50 WBC (4.23-9.07) x10^3/uL RBC (4.63-6.08) x10^6/uL Hgb (13.7-17.5) g/dL Hct (40.1-51.0) % MCV (79.0-92.2) fL MCH (25.7-32.2) pg MCHC (32.3-36.5) g/dL RDW (11.6-14.4) % Plt Count (163-337) x10^3/uL MPV (9.4-12.4) fL Gran % (34.0-67.9) % Immature Gran % (Auto) (0.001-0.429) % Nucleat RBC Rel Count (0.00-0.2) % Eos # (Auto) (0.04-0.54) x10^3/uL Immature Gran # (Auto) (0.001-0.031) x10^3u/L Absolute Lymphs (auto) (1.32-3.57) x10^3/uL Absolute Monos (auto) (0.30-0.82) x10^3/uL Absolute Nucleated RBC (0.00-0.012) x10^3u/L Lymphocytes % (21.8-53.1) % Monocytes % (5.3-12.2) % Eosinophils % (0.8-7.0) % Basophils % (0.2-1.2) % Absolute Granulocytes (1.78-5.38) x10^3/uL Basophils # (0.01-0.08) x10^3/uL Puncture Site LEFT RADIAL pCO2 31 L (35-45) mmHg pO2 108 H (75-100) mmHg Base Excess -3.3 L (-2.0-2.0) O2 Saturation 96.8 (94-100) g/dF ABG pH 7.42 (7.35-7.45) ABG HCO3 20.1 L (22-28) ABG O2 Sat (Measured) 99.1 (95-100) % Arturo Test YES A-a Gradient 81 a/A Ratio 0.57 Hemoglobin 14.9 Carboxyhemoglobin 1.1 (0.0-6.9) % THgb Methemoglobin 1.1 L (1.4-1.5) % Temperature 37.0 C POC O2 Flow Rate 32 % Sodium (135-145) mmol/L Potassium 3.3 L (3.5-5.1) mmol/L Chloride (98-107) mmol/L Carbon Dioxide (22-30) mmol/L Anion Gap (5-15) MEQ/L BUN (9-20) mg/dL Creatinine (0.66-1.25) mg/dL Estimated GFR ML/MIN Glucose (74-106) mg/dL Lactic Acid 0.9 (0.4-2.0) Calcium (8.4-10.2) mg/dL Magnesium (1.6-2.3) mg/dL Total Bilirubin (0.2-1.3) mg/dL AST (17-59) U/L ALT (0-50) U/L Alkaline Phosphatase (38-126) U/L Troponin I (0.000-0.033) ng/mL Serum Total Protein (6.3-8.2) g/dL Albumin (3.5-5.0) g/dL Urine Color (Yellow) Urine Appearance (Clear) Urine pH (4.6-8.0) Ur Specific [place] (1.005-1.030) Urine Protein (Negative) Urine Glucose (UA) (Negative) mg/dL Urine Ketones (Negative) Urine Blood (Negative) Urine Nitrite (Negative) Urine Bilirubin (Negative) Urine Urobilinogen (0.2) mg/dL Ur Leukocyte Esterase (Negative) U Hyaline Cast (Auto) (0-2) /LPF Urine Microscopic RBC (0-5) /HPF Urine Microscopic WBC (0-5) /HPF Ur Epithelial Cells (None Seen) /HPF Urine Bacteria (None Seen) /HPF Urine Culture Reflexed (NO) Salicylates (2-20) mg/dL Urine Opiates Level NEGATIVE (NEGATIVE) Ur Methadone NEGATIVE (NEGATIVE) Acetaminophen (10-30) ug/ml Urine Barbiturates NEGATIVE (NEGATIVE) Phenytoin (10-20) ug/mL Ur Phencyclidine (PCP) NEGATIVE (NEGATIVE) Urine Amphetamine NEGATIVE (NEGATIVE) U Benzodiazepine Level NEGATIVE (NEGATIVE) Urine Cocaine NEGATIVE (NEGATIVE) Urine Marijuana (THC) POSITIVE A (NEGATIVE) Ethyl Alcohol (0-10) mg/dL 07/30/24 07/30/24 07/30/24 Range/Units 20:50 20:00 20:00 WBC (4.23-9.07) x10^3/uL RBC (4.63-6.08) x10^6/uL Hgb (13.7-17.5) g/dL Hct (40.1-51.0) % MCV (79.0-92.2) fL MCH (25.7-32.2) pg MCHC (32.3-36.5) g/dL RDW (11.6-14.4) % Plt Count (163-337) x10^3/uL MPV (9.4-12.4) fL Gran % (34.0-67.9) % Immature Gran % (Auto) (0.001-0.429) % Nucleat RBC Rel Count (0.00-0.2) % Eos # (Auto) (0.04-0.54) x10^3/uL Immature Gran # (Auto) (0.001-0.031) x10^3u/L Absolute Lymphs (auto) (1.32-3.57) x10^3/uL Absolute Monos (auto) (0.30-0.82) x10^3/uL Absolute Nucleated RBC (0.00-0.012) x10^3u/L Lymphocytes % (21.8-53.1) % Monocytes % (5.3-12.2) % Eosinophils % (0.8-7.0) % Basophils % (0.2-1.2) % Absolute Granulocytes (1.78-5.38) x10^3/uL Basophils # (0.01-0.08) x10^3/uL Puncture Site pCO2 (35-45) mmHg pO2 (75-100) mmHg Base Excess (-2.0-2.0) O2 Saturation (94-100) g/dF ABG pH (7.35-7.45) ABG HCO3 (22-28) ABG O2 Sat (Measured) (95-100) % Arturo Test A-a Gradient a/A Ratio Hemoglobin Carboxyhemoglobin (0.0-6.9) % THgb Methemoglobin (1.4-1.5) % Temperature C POC O2 Flow Rate % Sodium (135-145) mmol/L Potassium (3.5-5.1) mmol/L Chloride (98-107) mmol/L Carbon Dioxide (22-30) mmol/L Anion Gap (5-15) MEQ/L BUN (9-20) mg/dL Creatinine (0.66-1.25) mg/dL Estimated GFR ML/MIN Glucose (74-106) mg/dL Lactic Acid (0.4-2.0) Calcium (8.4-10.2) mg/dL Magnesium (1.6-2.3) mg/dL Total Bilirubin (0.2-1.3) mg/dL AST (17-59) U/L ALT (0-50) U/L Alkaline Phosphatase (38-126) U/L Troponin I < 0.012 (0.000-0.033) ng/mL Serum Total Protein (6.3-8.2) g/dL Albumin (3.5-5.0) g/dL Urine Color Yellow (Yellow) Urine Appearance Cloudy A (Clear) Urine pH 7.5 (4.6-8.0) Ur Specific [place] 1.020 (1.005-1.030) Urine Protein Negative (Negative) Urine Glucose (UA) Negative (Negative) mg/dL Urine Ketones 15 A (Negative) Urine Blood Negative (Negative) Urine Nitrite Negative (Negative) Urine Bilirubin Negative (Negative) Urine Urobilinogen 0.2 (0.2) mg/dL Ur Leukocyte Esterase Negative (Negative) U Hyaline Cast (Auto) NONE SEEN (0-2) /LPF Urine Microscopic RBC 0-2 (0-5) /HPF Urine Microscopic WBC 0-2 (0-5) /HPF Ur Epithelial Cells None Seen (None Seen) /HPF Urine Bacteria None Seen (None Seen) /HPF Urine Culture Reflexed NO (NO) Salicylates < 1.0 L (2-20) mg/dL Urine Opiates Level (NEGATIVE) Ur Methadone (NEGATIVE) Acetaminophen < 10 L (10-30) ug/ml Urine Barbiturates (NEGATIVE) Phenytoin (10-20) ug/mL Ur Phencyclidine (PCP) (NEGATIVE) Urine Amphetamine (NEGATIVE) U Benzodiazepine Level (NEGATIVE) Urine Cocaine (NEGATIVE) Urine Marijuana (THC) (NEGATIVE) Ethyl Alcohol (0-10) mg/dL 07/30/24 07/30/24 Range/Units 20:00 20:00 WBC 10.8 H (4.23-9.07) x10^3/uL RBC 4.75 (4.63-6.08) x10^6/uL Hgb 14.5 (13.7-17.5) g/dL Hct 41.8 (40.1-51.0) % MCV 88.0 (79.0-92.2) fL MCH 30.5 (25.7-32.2) pg MCHC 34.7 (32.3-36.5) g/dL RDW 12.8 (11.6-14.4) % Plt Count 200 (163-337) x10^3/uL MPV 10.2 (9.4-12.4) fL Gran % 75.5 H (34.0-67.9) % Immature Gran % (Auto) 0.4 (0.001-0.429) % Nucleat RBC Rel Count 0.0 (0.00-0.2) % Eos # (Auto) 0.03 L (0.04-0.54) x10^3/uL Immature Gran # (Auto) 0.04 H (0.001-0.031) x10^3u/L Absolute Lymphs (auto) 1.99 (1.32-3.57) x10^3/uL Absolute Monos (auto) 0.55 (0.30-0.82) x10^3/uL Absolute Nucleated RBC 0.00 (0.00-0.012) x10^3u/L Lymphocytes % 18.4 L (21.8-53.1) % Monocytes % 5.1 L (5.3-12.2) % Eosinophils % 0.3 L (0.8-7.0) % Basophils % 0.3 (0.2-1.2) % Absolute Granulocytes 8.16 H (1.78-5.38) x10^3/uL Basophils # 0.03 (0.01-0.08) x10^3/uL Puncture Site pCO2 (35-45) mmHg pO2 (75-100) mmHg Base Excess (-2.0-2.0) O2 Saturation (94-100) g/dF ABG pH (7.35-7.45) ABG HCO3 (22-28) ABG O2 Sat (Measured) (95-100) % Arturo Test A-a Gradient a/A Ratio Hemoglobin Carboxyhemoglobin (0.0-6.9) % THgb Methemoglobin (1.4-1.5) % Temperature C POC O2 Flow Rate % Sodium 142 (135-145) mmol/L Potassium 3.5 (3.5-5.1) mmol/L Chloride 112 H (98-107) mmol/L Carbon Dioxide 15 L* (22-30) mmol/L Anion Gap 18.2 H (5-15) MEQ/L BUN 9 (9-20) mg/dL Creatinine 1.14 (0.66-1.25) mg/dL Estimated GFR 85.5 ML/MIN Glucose 121 H (74-106) mg/dL Lactic Acid (0.4-2.0) Calcium 9.5 (8.4-10.2) mg/dL Magnesium 2.1 (1.6-2.3) mg/dL Total Bilirubin 0.80 (0.2-1.3) mg/dL AST 26 (17-59) U/L ALT 27 (0-50) U/L Alkaline Phosphatase 96 (38-126) U/L Troponin I (0.000-0.033) ng/mL Serum Total Protein 7.4 (6.3-8.2) g/dL Albumin 4.5 (3.5-5.0) g/dL Urine Color (Yellow) Urine Appearance (Clear) Urine pH (4.6-8.0) Ur Specific [place] (1.005-1.030) Urine Protein (Negative) Urine Glucose (UA) (Negative) mg/dL Urine Ketones (Negative) Urine Blood (Negative) Urine Nitrite (Negative) Urine Bilirubin (Negative) Urine Urobilinogen (0.2) mg/dL Ur Leukocyte Esterase (Negative) U Hyaline Cast (Auto) (0-2) /LPF Urine Microscopic RBC (0-5) /HPF Urine Microscopic WBC (0-5) /HPF Ur Epithelial Cells (None Seen) /HPF Urine Bacteria (None Seen) /HPF Urine Culture Reflexed (NO) Salicylates (2-20) mg/dL Urine Opiates Level (NEGATIVE) Ur Methadone (NEGATIVE) Acetaminophen (10-30) ug/ml Urine Barbiturates (NEGATIVE) Phenytoin (10-20) ug/mL Ur Phencyclidine (PCP) (NEGATIVE) Urine Amphetamine (NEGATIVE) U Benzodiazepine Level (NEGATIVE) Urine Cocaine (NEGATIVE) Urine Marijuana (THC) (NEGATIVE) Ethyl Alcohol < 10 (0-10) mg/dL - Progress Progress: improved Progress Note: Case discussed with teleneurologist at 12:53 AM. Neurologist advises hospitalization for observation. She will fax a detailed note regarding plan of care. Apparently she does not have access to our EMR. 07/31/24 00:55 38-year-old male history of seizure recently discharged [facility] to our ED for recurrent seizure. Physical exam patient was ANO x 4 originally. However shortly after arrival patient had a seizure. Patient received 2 mg of Ativan. EKG normal sinus rhythm. CT head negative for acute intracranial pathology. Chest x-ray negative for acute pathology. Labs essentially nonremarkable. Tox screen significant for marijuana use. Troponin negative. Urinalysis negative for UTI. Neurologic exam negative for focal or lateralizing symptomology. Teleneuro consulted. Per teleneuro patient to be admitted for observation. At this point it is unclear whether or not the seizures are organic versus psychogenic per neurologist. If organic seizure observed patient be started on Vimpat. Plan of care discussed with patient. He agrees to admission at [facility] for further evaluation and treatment. Portions of this note were created with voice recognition technology. There may be grammatical, spelling, punctuation or sound alike errors Complexity of problem addressed is moderate acute complicated no critical care time. Complex of data reviewed and analyzed is extensive. Test ordered chest reviewed results analyzed and correlated clinically with history and physical exam. Management discussed with neurologist who advises hospitalization. Risk of complication and or risk of morbidity/mortality of patient management is high. Patient requires hospitalization for further evaluation and treatment. Vital stable. Time spent admit patient is approximately 20 minutes. Plan of care established for shared decision making. No social determinants of health present to impede follow-up. Portions of this note were created with voice recognition technology. There may be grammatical, spelling, punctuation or sound alike errors 07/31/24 01:04 Patient has decided to leave AGAINST MEDICAL ADVICE. Patient reports that he has priorities to attend to. Patient is of sound mind. Patient is appropriate to make informed and independent medical decisions. Patient understands that leaving AGAINST MEDICAL ADVICE can result in delayed diagnosis, increased risk of morbidity, mortality, short and long-term disability including . In spite of these risks, patient has decided to leave AGAINST MEDICAL ADVICE. Patient understands that he may return to our ED at any point if he reconsiders. Patient agrees to fol low-up with his primary care doctor within 48 hours for reevaluation. Patient voices no other complaints or concerns at this time. We will release patient AGAINST MEDICAL ADVICE per their request. Portions of this note were created with voice recognition technology. There may be grammatical, spelling, punctuation or sound alike errors 07/31/24 07:35 Counseled pt/family regarding: lab results, diagnosis, rad results - Departure Departure Disposition: AMA Clinical Impression: Seizure Condition: Stable Critical Care Time: No Referrals: ABDON JUAREZ, [facility] [Primary Care Provider] - Follow up/PCP as directed Additional Instructions: Discharge/Care Plan BEL DAVIS was seen on 07/31/24 in the Emergency Room. The patient was counseled regarding Diagnosis,Lab results, Imaging studies, need for follow up and when to return to the Emergency Room. Prescriptions given: Discharge Note I have spoken with the patient and/or caregivers. I have explained the patient's condition, diagnosis and treatment plan based on the information available to me at this time. I have answered the patient's and/or caregiver's questions and addressed any concerns. The patient and/or caregivers have as good understanding of the patient's diagnosis, condition and treatment plan as can be expected at this point. The vital signs have been stable. The patient's condition is stable and appropriate for discharge from the emergency department. The patient will pursue further outpatient evaluation with the primary care physician or other designated or consulting physician as outlined in the discharge instructions. The patient and/or caregivers are agreeable to this plan of care and follow-up instructions have been explained in detail. The patient and/or caregivers have received these instruction. The patient/and or caregivers are aware that any significant change in condition or worsening of symptoms should prompt an immediate return to this or the closest emergency department or call 911.
[2024-07-30 20:52] LABS: Carbon Dioxide 15 mmol/L (22-30)
[2024-07-30 21:03] LABS: Appearance Cloudy (Clear); Bacteria None Seen /HPF (None Seen); Bilirubin Negative (Negative); Blood Negative (Negative); Epithelial Cells None Seen /HPF (None Seen); Glucose, Urine Negative (Negative); Hyaline Casts NONE SEEN /LPF (0-2); Ketones 15 (Negative); Leukocyte Esterase Negative (Negative); Nitrite Negative (Negative); Ph 7.5 (4.6-8.0); Protein,Urine Dip Negative (Negative); RBC 0-2 /HPF (0-5); Urobilinogen 0.2 mg/dL (0.2); WBC 0-2 /HPF (0-5)
[2024-07-30] MEDS: Compazine 10 MG/2 ML IV ONE (21:03)
[2024-07-30] MEDS ORDERED: Compazine 10 MG/2 ML ONE (21:03)
[2024-07-30 21:27] LABS: A-aADO2 81; ABG HEMOGLOBIN 14.9; ABG POTASSIUM 3.3 (3.5-5.1); ARTERIAL BLD GAS O2 SATURATION 99.1 % (95-100); ARTERIAL BLOOD GAS BASE EXCESS -3.3 (-2.0-2.0); ARTERIAL BLOOD GAS FIO2 32 %; ARTERIAL BLOOD GAS PCO2 31 mmHg (35-45); ARTERIAL BLOOD GAS PO2 108 mmHg (75-100); ARTERIAL BLOOD GAS pH 7.42 (7.35-7.45); CARBOXYHEMOGLOBIN 1.1 % THgb (0.0-6.9); HCO3- 20.1 (22-28); HGB O2 SAT 96.8 g/dF (94-100); Methhemoglobin 1.1 % (1.4-1.5); paO2 pAO1 0.57
[2024-07-30 21:28] LABS: ABG SITE LEFT RADIAL; ALLEN TEST OK? YES
[2024-07-30 22:08] LABS: ACETAMINOPHEN < 10 ug/ml (10-30); SALICYLATE < 1.0 mg/dL (2-20)
[2024-07-30 22:17] LABS: Amphetamine,Urine NEGATIVE (NEGATIVE); Barbiturate,Urine NEGATIVE (NEGATIVE); Benzodiazepine,Urine NEGATIVE (NEGATIVE); Cocaine,Urine NEGATIVE (NEGATIVE); Methadone,Urine NEGATIVE (NEGATIVE); Opiate,Urine NEGATIVE (NEGATIVE); PCP,Urine NEGATIVE (NEGATIVE); THC,Urine POSITIVE (NEGATIVE)
[2024-07-31] MEDS: TOPIRAMATE PO SCH (07:53)
[2024-07-31] MEDS: DILANTIN 30 MG PO SCH (07:53)
[2024-07-31] MEDS: Zofran 4 MG/2 ML VIAL IV ONE (08:09)
[2024-07-31] MEDS ORDERED: Zofran 4 MG/2 ML VIAL ONE (08:09)
[2024-07-31] MEDS ORDERED: Ativan 2 MG/1 ML VIAL ONE (08:36)
--- NOTE | 2024-07-31 08:38 | XRAY ---
Indication: Seizure. Multiple contiguous axial images obtained through the head without contrast. Comparison: May 13, 2024 Normal appearing brain parenchyma, ventricles, and bony calvarium. Visualized paranasal sinuses and mastoid air cells are clear. Impression: Continued normal CT head without contrast exam.
--- NOTE | 2024-07-31 08:46 | XRAY ---
Indication: Short of breath. Aspiration. Comparison: January 01, 2010 Portable chest now demonstrates normal heart, lungs, and bony thorax.
[2024-07-31] MEDS: Ativan 2 MG/1 ML VIAL IV ONE (08:53)
[2024-07-31] MEDS: TYLENOL EXTRA STRENGTH 500 MG PO STA (09:00)
[2024-07-31] MEDS ORDERED: TYLENOL EXTRA STRENGTH 500 MG ONE (09:00)
[2024-07-31 09:06] VITALS: TEMP 97.8
[2024-07-31 14:12] VITALS: BP 140/89; PULSE 80; RESP 17; O2SAT 99
== END 2024-07-31 14:10 | disposition short-term general hospital (02) ==
LOC: ED 19:40
DX: G40.909 Epilepsy, unspecified, not intractable, without status epilepticus (principal); Z79.899 Other long term (current) drug therapy; Z72.0 Tobacco use
CPT/HCPCS: 36415; 36600; 70450; 71045; 80053; 80143; 80179; 80185; 80307; 81001; 82077; 82375; 82803; 83605; 83735; 84484; 85025; 93005; 93041; 94760; 96374; 96375; 99285; Q3014; J2060; J2405; A9270-GY